=== PATIENT | female | born 1965 | race Caucasian/White ===

== ENCOUNTER 2017-08-01 10:58 | Day surgery (SDC) | payer BC ==
[~2017-08-01] VITALS: Ht 170.2 cm; Wt 54.8 kg
[~2017-08-01 10:58] MED LIST: BIOT1TAB2 PO; CALC500T93 PO; CHOL10003 PO; ESTR1TAB15 PO; FISH1CAP PO; HYDR20TA22 PO; Iron PO; MULT-308 PO; PROG100C16 PO; PYRI25TA2 PO; ZINC50TA28 PO; [UNRECOGNIZED DRUG - OTHER] PO
[2017-08-01] MEDS ORDERED: LACTATED RINGERS 1,000 ML IV SCH (11:21)
[2017-08-01 11:41] VITALS: BP 118/69
[2017-08-01] MEDS ORDERED: BUPIVACAINE/PF 0.25% ONE (12:29)
[2017-08-01] MEDS ORDERED: LIDOCAINE 2%, 20ML ONE (12:58)
[2017-08-01] MEDS ORDERED: MIDAZOLAM 1 MG/ML, 2ML ONE (12:58)
[2017-08-01] MEDS ORDERED: FENTANYL PF 100 MCG/2ML ONE (12:58)
[2017-08-01] MEDS ORDERED: PROPOFOL 50 ML ONE (13:04)
[2017-08-01] MEDS ORDERED: METOCLOPRAMIDE 5 MG/ML, 2ML ONE (13:07)
[2017-08-01] MEDS ORDERED: PROPOFOL 10 MG/ML, 20ML ONE (13:07)
[2017-08-01] MEDS ORDERED: ONDANSETRON 2MG/ML, 2ML ONE (13:07)
[2017-08-01] MEDS ORDERED: CEFAZOLIN 1,000 MG ONE (13:07)
[2017-08-01] MEDS ORDERED: DEXAMETHASONE 4 MG/ML, 1ML ONE (13:07)
[2017-08-01] MEDS ORDERED: KETOROLAC 30 MG/1 ML ONE (13:17)
[2017-08-01] MEDS ORDERED: PROMETHAZINE 25 MG/ML, 1ML IV PRN (13:30)
[2017-08-01] MEDS ORDERED: OXYcodone 5 MG/5 ML ORAL.SOL UDC PO PRN (13:30)
[2017-08-01] MEDS ORDERED: MIDAZOLAM 1 MG/ML, 2ML IV PRN (13:30)
[2017-08-01] MEDS ORDERED: hydrALAzine 20 MG/ML, 1ML IV PRN (13:30)
[2017-08-01] MEDS ORDERED: HYDROmorphone 1 MG/ML, 1ML IV PRN (13:30)
[2017-08-01] MEDS ORDERED: DIAZEPAM 5 MG/ML, 2ML IVPush PRN (13:30)
[2017-08-01] MEDS ORDERED: FENTANYL PF 100 MCG/2ML IV PRN (13:30)
[2017-08-01] MEDS ORDERED: MEPERIDINE/PF 25MG/0.5ML IVPush PRN (13:30)
[2017-08-01] MEDS ORDERED: ALBUTEROL/IPRATROPIUM 2.5MG/0.5MG, 3 ML NPPB PRN (13:30)
[2017-08-01] MEDS ORDERED: LABETALOL 5MG/ML, 20ML IV PRN (13:30)
[2017-08-01] MEDS ORDERED: ACETAMINOPHEN 325 MG TABLET PO PRN (13:30)
[2017-08-01] MEDS ORDERED: ONDANSETRON 2MG/ML, 2ML IVPush PRN (13:30)
[2017-08-01] MEDS ORDERED: ACETAMINOPHEN 325 MG TABLET ONE (13:59)
== END 2017-08-01 17:05 ==
LOC: OUT 10:58
PROVIDERS: ATTEND Obstetrics & Gynecology
DX: N95.0 Postmenopausal bleeding (principal); Z98.890 Other specified postprocedural states
CPT/HCPCS: 36415; 58558; 86850; 86900; 88305; J1100; J1885; J2250; J2405; J2704; J2765; J3010; J3490; J7120; J0690